=== PATIENT | male | born 1955 | race Asian ===

== ENCOUNTER 2016-12-05 11:23 | Emergency (ER) | payer BC, OTHER ==
[2016-12-05 11:37] VITALS: BP 176/77
--- NOTE | 2016-12-05 12:08 | UC ---
Kwaku Vidal Benjamin, scribed for Aleksandr Stevenson MD on 12/05/16 at 1206 . Throat Pain/Nasal Pedro HPI - HPI Summary HPI Summary: 61yo male c/o sore throat for a week. Pt also reports cold symptoms, cough with yellow sputum, and diffuse body aches. Pt took OTC meds yesterday. PMHx includes HTN. Pt is UTD on flu vaccination. - History of Current Complaint Chief Complaint: UCRespiratory Stated Complaint: COUGH,ACHES, CONGESTION Time Seen by Provider: 12/05/16 11:54 Hx Obtained From: Patient Onset/Duration: Gradual Onset, Lasting Weeks - 1, Still Present Severity: Moderate Cough: Sputum Appears - yellow - Allergies/Home Medications Allergies/Adverse Reactions: Allergies Allergy/AdvReac Type Severity Reaction Status Date / Time No Known Allergies Allergy Verified 12/05/16 11:37 Home Medications: Home Medications [place]-3 Fatty Acids [Fish Oil] 1,000 mg PO DAILY 12/05/16 [History Confirmed 08/22] PMH/Surg Hx/FS Hx/Imm Hx Cardiovascular History: Hypertension - Surgical History Surgical History: None - Family History Known Family History: Positive: Hypertension, Diabetes - Social History Occupation: Employed Full-time Lives: With Family Alcohol Use: None Substance Use Type: None Smoking Status (MU): Never Smoked Tobacco - Immunization History Most Recent Influenza Vaccination: none Most Recent Tetanus Shot: unknown Most Recent Pneumonia Vaccination: none Review of Systems Constitutional: Negative Skin: Negative Eyes: Negative ENT: Sore Throat, Nasal Discharge Respiratory: Cough Cardiovascular: Negative Gastrointestinal: Negative Genitourinary: Negative Motor: Negative Neurovascular: Negative Musculoskeletal: Negative Neurological: Negative Psychological: Negative All Other Systems Reviewed And Are Negative: Yes Physical Exam Triage Information Reviewed: Yes Appearance: No Pain Distress, Well-Nourished, Ill-Appearing - mildly Vital Signs: Initial Vital Signs Temp 99.0 F 12/05/16 11:34 Pulse 100 12/05/16 11:34 Resp 18 12/05/16 11:34 BP 176/77 12/05/16 11:34 Pulse Ox 97 12/05/16 11:34 Eye Exam: Normal ENT: Positive: Hearing grossly normal, Pharynx normal, Nasal drainage - clear Neck: Positive: Supple, Nontender Respiratory: Positive: Chest non-tender, Lungs clear, Normal breath sounds, No respiratory distress Cardiovascular: Positive: RRR, No Murmur Abdomen Description: Positive: Nontender, Soft Bowel Sounds: Positive: Present Musculoskeletal: Positive: Strength Intact, ROM Intact Neurological: Positive: Alert, Muscle Tone Normal Psychological: Positive: Age Appropriate Behavior Skin Exam: Normal Skin: Negative: rashes Throat Pain/Nasal Course/Dx - Course Course Of Treatment: Reviewed medication lists. - Differential Dx/Diagnosis Provider Diagnoses: 1. Hypertension. SINUSITIS Discharge - Discharge Plan Condition: Stable Disposition: HOME Prescriptions: Amoxicillin/Clavulanate TAB* [Augmentin TAB 875*] 875 mg PO BID #20 tab Patient Education Materials: Sinusitis (ED), Hypertension (ED) Referrals: Ricky Carrasco MD [Primary Care Provider] - Additional Instructions: FOLLOW UP WITH YOUR DOCTOR. GET REEVALUATED FOR ANY WORSENING OF YOUR CONDITION OR QUESTIONS OR CONCERNS. The documentation as recorded by the Kwaku pugh Benjamin accurately reflects the service I personally performed and the decisions made by me, Aleksandr Stevenson MD.
== END 2016-12-05 12:15 | disposition home or self-care (01) ==
LOC: UCEAST 11:23
DX: J32.9 Chronic sinusitis, unspecified (principal); I10 Essential (primary) hypertension
CPT/HCPCS: 99212; G0463

== ENCOUNTER 2018-07-31 19:52 | Emergency (ER) | payer BC ==
[2018-07-31 20:01] VITALS: BP 159/106
[2018-07-31] MEDS ORDERED: Sodium Phosphate ADULT ENEMA* 118 ml bottle PR ONE (20:27)
--- NOTE | 2018-07-31 20:35 | UC ---
UC General HPI - HPI Summary HPI Summary: PATIENT UNDERWENT LAPAROSCOPIC PROSTATECTOMY AT [facility] 4 DAYS AGO ON 07/27/18. HAS BEEN TAKING COLACE TWICE DAILY SINCE THEN BUT HAS NOT HAD A BOWEL MOVEMENT. TODAY HE TOOK 1 DOSE OF MIRALAX. STATES HE IS ABLE TO PASS GAS AND IS EATING NORMALLY BUT IS UNABLE TO HAVE A BOWEL MOVEMENT. STATES HE WANTS TO GO BUT JUST CANNOT PUSH IT OUT. HE DENIES ABDOMINAL PAIN. NO FEVER. NO NAUSEA/ VOMITING. - History of Current Complaint Chief Complaint: UCGU Stated Complaint: PERSONAL Time Seen by Provider: 07/31/18 20:11 Hx Obtained From: Patient Onset/Duration: Lasting Days, Still Present Timing: Constant Onset Severity: Moderate Current Severity: Moderate Pain Intensity: 3 Associated Signs & Symptoms: Negative: Abdominal Pain, Back Pain, Cough, Chest Pain, Diarrhea, Fever, Nausea, Vomiting - Allergy/Home Medications Allergies/Adverse Reactions: Allergies Allergy/AdvReac Type Severity Reaction Status Date / Time No Known Allergies Allergy Verified 07/31/18 20:01 Home Medications: Home Medications Acetaminophen TAB* [Tylenol TAB*] 650 mg PO Q6H PRN 07/31/18 [History Confirmed 07/31/18] Bacitracin OINTMENT* 07/31/18 [History] Docusate Sodium [Stool Softener] 100 mg PO BID 07/31/18 [History Confirmed 07/31] Lisinopril/HCTZ 20/12.5(NF) [Zestoretic 20/12.5(NF)] 1 tab PO DAILY 07/31/18 [ History Confirmed 07/31/18] Polyethylene Glycol 3350* [Miralax*] 17 gm PO DAILY PRN 07/31/18 [History Confirmed 07/31/18] traMADol TAB* [Ultram*] 50 mg PO Q6HR PRN 07/31/18 [History Confirmed 07/31/18] PMH/Surg Hx/FS Hx/Imm Hx Cardiovascular History: Hypertension Cancer History: Prostate Cancer - Surgical History Surgical History: Yes Surgery Procedure, Year, and Place: PROSTATECTOMY 07/27/18, APPENDECTOMY - Family History Known Family History: Positive: Hypertension, Diabetes - Social History Alcohol Use: None Substance Use Type: None Smoking Status (MU): Never Smoked Tobacco - Immunization History Most Recent Influenza Vaccination: none Most Recent Tetanus Shot: unknown Most Recent Pneumonia Vaccination: none Review of Systems All Other Systems Reviewed And Are Negative: Yes Constitutional: Positive: Negative Skin: Positive: Other - healing surgical incisions Respiratory: Positive: Negative Cardiovascular: Positive: Negative Gastrointestinal: Positive: Other - CONSTIPATION. Negative: Abdominal Pain, Vomiting, Nausea Physical Exam Triage Information Reviewed: Yes Appearance: Well-Nourished, Pain Distress - LOOKS MODERATELY UNCOMFORTABLE Vital Signs: Initial Vital Signs Temp 98.3 F 07/31/18 19:56 Pulse 109 07/31/18 19:56 Resp 18 07/31/18 19:56 BP 159/106 07/31/18 19:56 Pulse Ox 100 07/31/18 19:56 Vital Signs Reviewed: Yes Eyes: Positive: Conjunctiva Clear ENT: Positive: Hearing grossly normal Neck: Positive: Supple Respiratory: Positive: No respiratory distress, No accessory muscle use Cardiovascular: Positive: Pulses Normal Abdomen Description: Positive: Soft. Negative: Distended Musculoskeletal: Positive: No Edema Neurological: Positive: Alert Psychological: Positive: Age Appropriate Behavior Skin: Negative: Rashes UC Physical Exam Vital Signs On Initial Exam: Initial Vitals Temp Pulse Resp BP Pulse Ox 98.3 F 109 18 159/106 100 07/31/18 19:56 07/31/18 19:56 07/31/18 19:56 07/31/18 19:56 07/31/18 19:56 - Rectal Exam Rectal Exam: Normal Rectal Tone, Non-tender, Other - STOOL IN RECTAL VAULT Course/Dx - Course Course Of Treatment: AFTER DIGITAL RECTAL EXAM PATIENT FELT THE URGE TO MOVE HIS BOWELS. HE WENT TO THE RESTROOM AND SUCCESSFULLY HAD A LARGE BOWEL MOVEMENT. FELT MUCH BETTER AFTERWARDS. HAVE ADVISED TO CONTINUE HIS TWICE DAILY COLACE PRESCRIBED BY HIS SURGEON AND KEEP HIS FOLLOW-UP APPOINTMENT THIS UPCOMING WEEK. ENCOURAGED TO STAY WELL-HYDRATED. TO THE ER IF HE UNABLE TO PASS GAS OR DEVELOPS ABDOMINAL PAIN, FEVER, N/V OR ANY OTHER CONCERNING SYMPTOMS. - Diagnoses Provider Diagnosis: Constipation Discharge - Sign-Out/Discharge Documenting (check all that apply): Patient Departure All imaging exams completed and their final reports reviewed: No Studies - Discharge Plan Condition: Stable Disposition: HOME Patient Education Materials: Constipation (ED) Referrals: Ricky Carrasco MD [Primary Care Provider] - If Needed Additional Instructions: YOU SUCCESSFULLY HAD A BOWEL MOVEMENT HERE IN THE URGENT CARE. CONTINUE TO TAKE YOUR COLACE STOOL SOFTENER TWICE DAILY PRESCRIBED BY YOUR SURGEON. KEEP YOUR FOLLOW-UP APPOINTMENT WITH YOUR SURGEON THIS COMING UP WEEK. STAY VERY WELL-HYDRATED. GO TO THE ED WITHOUT FAIL IF YOU'RE UNABLE TO PASS GAS OR STOOL, DEVELOP NAUSEA/VOMITING, FEVER OR ABDOMINAL PAIN. - Billing Disposition and Condition Condition: STABLE Disposition: Home
== END 2018-07-31 20:56 | disposition home or self-care (01) ==
LOC: UCEAST 19:52
DX: K59.00 Constipation, unspecified (principal); Z90.79 Acquired absence of other genital organ(s); I10 Essential (primary) hypertension
CPT/HCPCS: 99211; A9270-GY; G0463